=== PATIENT | female | born 1950 | race Two or more races ===

== ENCOUNTER 2024-06-15 06:48 | Day surgery (SDC) | payer OTHER ==
[~2024-06-15] VITALS: Ht 149.9 cm; Wt 63.0 kg
[~2024-06-15 06:48] MED LIST: AMLO1TAB23 PO; GABA-1250 PO; LEVO88TA4 PO; MAGN400T40 OR; OMEP-335 PO; VALS320T PO
[2024-06-15] MEDS ORDERED: LIDOCAINE 2% (LOCAL ANESTH.) PF 5ml SDV ONE (07:48)
[2024-06-15] MEDS ORDERED: PROPOFOL 10 MG/ML 20 ML IV ONE ×2 (07:48→08:26)
[2024-06-15] MEDS ORDERED: GLYCOPYRROLATE 0.2 MG/ML 1ML VIAL ONE (08:18)
[2024-06-15 08:33] VITALS: PULSE 78; RESP 17; TEMP 97.9; O2SAT 99
--- NOTE | 2024-06-15 08:33 | DVHHP2 ---
GI H&P Pre-Op Assessment Date: 06/15/24 Chief complaint: Abdominal pain, melena, diarrhea HPI: per clinic note Past medical history: per clinic note Past surgical history: per clinic note Family history: per clinic note Physical exam: General: NAD, AAOX3 HEENT: PERRL, no scleral icterus, normal hearing, gums without lesions or bleeding, oropharynx clear without erythema or exudate. Neck: Supple without enlargement of the thyroid, or lymphadenopathy. Chest: Normal size and shape, no tenderness, lung pettit clear to auscultation and percussion, nonlabored breathing. Heart: RRR, no murmur Abdomen: non-distended, no tenderness to palpation, +BS, no hepatosplenomegaly Extremities: no edema Neurological: CN II-XII intact, sensation intact in all extremities, 5+ strength in all extremities Skin: No rashes, No jaundice Assessment: - Abdominal pain, melena, diarrhea Plan: - EGD - Colonoscopy - Risks (bleeding, infection, perforation, reaction to sedation medications and cardiopulmonary arrest) and benefit of the procedure were explained to patient. Patient agrees to undergo the procedure. ANDI FERNANDEZ MD Jun 15, 2024 08:33
--- NOTE | 2024-06-15 08:35 | DVHOP2 ---
Operative Report DATE OF OPERATION: 06/15/24 PROCEDURE: Colonoscopy. PREOPERATIVE INDICATION: The patient is a 74 -year-old female undergoing colonoscopy for abdominal pain and diarrhea. POSTOPERATIVE DIAGNOSES: 1. 1 mm right colon polyp was removed with biopsy forceps. 2. Diverticulosis left colon 3. Small internal hemorrhoids 4. Random colon biopsy was obtained to evaluate for microscopic colitis. PROCEDURE PERFORMED BY: Akash Zuniga M.D. SCOPE: Olympus videocolonoscope. ASA CLASS: 3 PREOPERATIVE MEDICATIONS: MAC with Dr Ortez PROCEDURE IN DETAIL: After obtaining an informed consent, the patient was placed on left lateral decubitus position. She was then sedated with the above medications. A rectal examination was performed that was normal. The colonoscope was then passed through the anus into the rectosigmoid and through the descending, transverse, and ascending colon up to the cecum with visualization of the appendiceal orifice, base of the cecum and the ileocecal valve. A 1 mm right colon polyp was removed with biopsy forceps. There was diverticulosis left colon. There were small internal hemorrhoids. Random colon biopsy was obtained to evaluate for microscopic colitis. The colonoscope was then withdrawn. The patient tolerated the procedure well without difficulty. WITHDRAWAL TIME: 7 minutes QUALITY OF THE PREP: [place] Bowel Prep score: 6 COMPLICATIONS : None SPECIMENS: Colon polyp Random colon biopsies DISPOSITION: D/C to home PLAN: 1. Repeat colonoscopy base on biopsy result AKASH ZUNIGA MD Jun 15, 2024 08:35
--- NOTE | 2024-06-15 08:36 | DVHOP2 ---
Operative Report DATE OF OPERATION: 06/15/24 PROCEDURE: Upper Endoscopy. PREOPERATIVE INDICATION: The patient is a 74 -year-old female undergoing endoscopy for abdominal pain and melena. POSTOPERATIVE DIAGNOSES: 1. Normal EGD 2. Gastric biopsies were obtained to evaluate for H pylori. PROCEDURE PERFORMED BY: Akash Zuniga SCOPE: Olympus videoendoscope. ASA CLASS: 3 PREOPERATIVE MEDICATIONS: MAC with Dr Ortez PROCEDURE IN DETAIL: After obtaining an informed consent, the patient was placed on left lateral decubitus position. The patient was then sedated with the above medications. A bite block was placed between her teeth. The endoscope was then passed through the oropharynx, into the esophagus, and throu gh the stomach and pylorus up to the second and third part of the duodenum. The duodenum was normal in appearance. The stomach was normal in appearance. Gastric biopsy obtained to evaluate for H pylori. The GE junction was normal in appearance at 35 cm. The esophagus was normal in appearance. The endoscope was then withdrawn. The patient tolerated the procedure well without difficulty. COMPLICATIONS : None SPECIMENS: Gastric biopsies DISPOSITION: D/C to home PLAN: 1. Await for biopsy result AKASH ZUNIGA MD Jun 15, 2024 08:36
--- NOTE | 2024-06-15 08:37 | DVHDS2 ---
Physician Discharge Progress N Final Diagnosis: Normal EGD Colon polyp and diverticulosis and internal hemorrhoids Operations or Procedures: Operations or Procedures EGD with biopsy Colonoscopy with biopsy Condition on Discharge: Good Disposition: Home Discharge Instructions: Diet: Regular Activity: No Restrictions, As Tolerated Medications: Resume previous home medications Follow Up Care: Discharge Statement: "Patient was advised to return to the ER or call 911 if any headaches, dizziness, shortness of breath, chest pain, abdominal pain, bleeding, fevers, or worsening of medical condition. Patient was counseled about treatment plan, medications, possible side effects, patientverbalized understanding. All questions were answered to the best of my ability. This discharge took greater then 30 minutes in planning, reviewing documentation, counseling the patient, and discussing with other team members." ANDI FERNANDEZ MD Jun 15, 2024 08:37
[2024-06-15 09:18] VITALS: BP 133/70; PULSE 84; RESP 17; O2SAT 97
== END 2024-06-15 09:37 | disposition home or self-care (01) ==
LOC: GI 06:48
PROVIDERS: ATTEND Internal Medicine Gastroenterology
DX: R19.7 Diarrhea, unspecified (principal); K63.5 Polyp of colon; K92.1 Melena; K57.30 Diverticulosis of large intestine without perforation or abscess without bleeding; K64.8 Other hemorrhoids; K29.50 Unspecified chronic gastritis without bleeding; R10.9 Unspecified abdominal pain
CPT/HCPCS: 43239; 45380; 88305; 88312; 88342; J2003; J2704; J7030